=== PATIENT | male | born 1980 ===

== ENCOUNTER 2024-02-03 07:05 | Outpatient (CLI) | payer OTHER ==
--- NOTE | 2024-02-03 11:58 | MRI Report ---
PROCEDURE: Lumbar Spine WO INDICATIONS: LOW BACK PAIN TECHNIQUE: Noncontrast sagittal T1 spin echo and T2 fast echo, sagittal STIR, axial T1 and T2 fast spin echo thr ough the lumbar spine. In cases with scoliosis, additional coronal T2 fast spin echo may be performe d. COMPARISON: No relevant comparisons at time of dictation. FINDINGS: Image quality: Excellent. Alignment and Curvature: There is normal bony alignment. Bone Marrow: Marrow is of normal overall signal. No acute vertebral body compression fractures. Spinal Cord: Conus medullaris terminates at the L1 level. Visualized cord demonstrates normal signa l and size. Paraspinous Soft Tissues: No paravertebral masses. T12-L1: Normal in appearance. L1-L2: Disc desiccation, broad-based disc bulge, bilateral facet effusions. L2-L3: Disc desiccation, broad-based disc bulge, right facet effusion. Mild bilateral neural wild inal narrowing. L3-L4: Disc desiccation, broad-based disc bulge, facet effusions, mild facet hypertrophy and epidur al lipomatosis. Mild to moderate right neural foraminal narrowing. L4-L5: Disc desiccation, broad-based disc bulge, facet hypertrophy. Mild to moderate right and mild left neural foraminal narrowing. Annular fissure. L5-S1: Broad-based disc bulge, mild facet hypertrophy. Moderate left and mild to moderate right karo ral foraminal narrowing. IMPRESSION: Multilevel degenerative disc disease and facet arthrosis. Of note: No significant spinal canal narrowing. Up to moderate neural foraminal narrowing at the left side of L5-S1. Reviewed by: Nando Story MD on 02/03/2024 11:57 AM PDT Approved by: Nando Story MD on 02/03/2024 11:57 AM PDT Station ID: [id number]
== END 2024-02-03 07:06 | disposition home or self-care (01) ==
LOC: DI 07:05
DX: M47.816 Spondylosis without myelopathy or radiculopathy, lumbar region (principal); M51.36 Other intervertebral disc degeneration, lumbar region; M48.07 Spinal stenosis, lumbosacral region